=== PATIENT | female | born 1985 | race Caucasian/White ===

== ENCOUNTER 2021-02-05 12:16 | Emergency (ER) | payer OTHER, SELFPAY ==
--- NOTE | ~2021-02-05 | XR_ITS ---
EXAMINATION: XR chest 1V portable EXAM DATE: 02/05/2021 13:35 INDICATION: Cough X 1 Week, COVID +. TECHNIQUE: Portable AP frontal chest x-ray was obtained. Comparison is made to prior examination from 08/02/2012. FINDINGS: The lungs are clear. There are no pleural effusions. The cardiomediastinal silhouette is within normal limits. There is no pneumothorax suspected. The bones and soft tissues are unremarkab le. IMPRESSION: No acute cardiopulmonary findings. Reviewed, dictated and finalized at location B. NE INSPECTOR
--- NOTE | 2021-02-05 13:04 | ED.NAVMDI ---
HPI - Nausea/Vomiting/Diarrhea General Chief complaint: Nausea/Vomiting/Diarrhea Stated complaint: COVID + DEHYDRATION Time Seen by Provider: 02/05/21 12:49 Source: patient and RN notes reviewed Mode of arrival: ambulatory Limitations: no limitations History of Present Illness HPI Narrative: This is a 36 year old female who presents for evaluation of possible dehydration. Patient developed symptoms of COVID 10-11 days ago. Her symptoms have included nausea,diarrhea, body aches, intermittent headache, sinus drainage, and cough. Her body aches and headaches have resolved. She reports reports mild cough. She has intermittent diarrhea but denies any diarrhea today. She denies fever. She was tested for covid around [address] [facility] and she was found to be positive. She was evaluated by her PCP today and they thought she was dehydrated. She was referred to ER for IV hydration. It sounds like orthostatic blood pressures were performed and her BP was in 90s with lightheadedness. Patient states she stood up for a long time. She states she is drinking lots of fluid but she is eating very little due to decreased appetite. She is unvaccinated Related Data Allergies Allergy/AdvReac Type Severity Reaction Status Date / Time azithromycin Allergy Mild RASH,HIVES Verified 02/05/21 13:53 Review of Systems Review of Systems: All systems reviewed & are unremarkable except as noted in HPI and below Constitutional: Constitutional: Reports chills, Reports fatigue and Denies fever(s) ENT: Denies sore throat Cardiovascular: Cardiovascular: Denies chest pain Respiratory: Respiratory: Reports cough, Denies dyspnea and Denies wheezing Gastrointestinal: Gastrointestinal: Denies abdominal pain, Reports diarrhea, Reports nausea and Denies vomiting Endocrine: Endocrine: Reports fatigue PMFSH Past Medical History Medical History (Updated 02/05/21 @ 14:58 by Cindi Nieto MD) Anxiety Arthritis Family History Family History (Updated 10/17/15 @ 23:21 by DOCTOR UNKNOWN) Grandparent Cerebrovascular accident Depression Family history of Alzheimer's disease Malignant neoplasm of prostate Family history of lung cancer Mother Depression Patient's mother is in good health Father Family history of migraine headaches Patient's father is in good health Sibling Family history of migraine headaches Patient's sister is in good health Patient's brother is in good health Social History Social History Smoking status: Never smoker Second hand tobacco smoke exposure: No Alcohol intake: current Exam Narrative: GENERAL: Well-appearing, well-nourished, and in no acute distress. HEAD: Normocephalic, atraumatic EYES: PERRLA and EOMI, conjunctiva clear without discharge EARS: TM's clear bilaterally without erythema or dullness NOSE: Nares clear, no rhinorrhea or epistaxis THROAT:Mucous membranes moist, Oropharynx normal without erythema, exudate, peritonsillar swelling or fluctuance NECK: Supple, without lymphadenopathy or mass RESPIRATORY: No respiratory distress, Airway patent, Respirations non-labored, Clear to auscultation without rales, rhonchi or wheeze HEART: Regular rate and rhythm. No murmur heard. Normal peripheral pulses. ABDOMEN: Soft, nontender, nondistended, normal active bowel sounds. No masses. No rebound or guarding, No organomegaly. EXTREMITIES: No edema, normal strength with full range of motion. SKIN: Warm, dry, normal color without rash NEURO: Alert and oriented x3. CN 2-12 grossly intact. No focal deficits. PSYCH: Normal mood and affect. Const: General: no acute distress and alert Orientation/consciousness: patient oriented x3 Course Reevaluation(s) Reevaluation #1: Patient appears well. Labs are unremarkable other than mild leukopenia from viral infection. Her PCP has prescribed her augmentin. Date: 02/05/21 Time: 14:56 Vital Signs Vital signs: Vital Signs T
[2021-02-05 13:05] VITALS: BP 108/85; PULSE 79; RESP 17; TEMP 36.4; O2SAT 99
--- NOTE | 2021-02-05 13:05 | ECG_ITS ---
Measurements Intervals [place] Rate: 71 P: 25 NC: 138 QRS: 78 QRSD: 89 T: 48 QT: 385 QTc: 419 Interpretive Statements SINUS RHYTHM NORMAL ECG Electronically Signed On 02-05-2021 14:10:52 ARCHITECTURAL MANAGER by Mook Hearn D.O.
[2021-02-05 13:21] VITALS: BP 115/72; PULSE 81
[2021-02-05 13:22] VITALS: BP 119/85; BP 120/92; PULSE 105; PULSE 93
[2021-02-05 13:52] LABS: Basophils Percent Auto 0.3 % (0.2-1.2); Eosinophils Percent Auto 0.5 % (0-4.4); Hemoglobin 13.8 g/dL (12.0-15.0); Immature Granulocyte Absolute 0.01 K/mm3 (0.00-0.031); Immature Granulocyte Percent A 0.3 % (0-0.5); Lymphocytes Absolute Auto 1.17 K/mm3 (0.9-3.2); Lymphocytes Percent Auto 30.9 % (18.3-44.2); Mean Corpuscular HGB Conc 33.7 g/dl (32-36); Mean Corpuscular Hemoglobin 30.3 pg (26-34); Mean Corpuscular Volume 90.1 fl (80-100); Mean Platelet Volume 10.5 fl (7.4-10.4); Monocytes Absolute Auto 0.5 K/mm3 (0.1-0.6); Monocytes Percent Auto 13.5 % (2.6-8.5); Neutrophils Absolute Auto 2.1 K/mm3 (1.3-6.7); Neutrophils Percent Auto 54.5 % (45.5-73.1); Platelet Count Result 124 k/mm3 (150-375); Red Blood Count 4.55 M/mm3 (4.2-5.4); Red Cell Distribution Width 12.3 % (11.5-14.5); White Blood Count 3.8 K/mm3 (4.5-10.0)
[2021-02-05 13:56] LABS: Add Urine Microscopic? YES; Appearance Urine Cloudy (Clear); Bilirubin Urine Negative (Negative); Blood Urine Negative (Negative); Color Urine Yellow (Yellow); Glucose Urine UA Negative (Negative); Ketones Urine Negative (Negative); Leukocyte Esterase Ur 2+ LEU/UL (Negative); Mucus Urine Heavy /lpf; Nitrate Urine Negative (Negative); Protein Urine 1+ mg/dL (Negative); Specific Grav Ur 1.024 (1.001-1.035); Squamous Epithelial Cell Urine Many /hpf (Few); Urobilinogen Urine Negative mg/dL (<2.0)
[2021-02-05] MEDS: LACTATED RINGERS 1,000 ML 999 ML IV CONT (14:04)
[2021-02-05] MEDS: ONDANSETRON INJ 4 MG/2 ML VIAL IV PUSH (14:04)
[2021-02-05 14:06] LABS: Alanine Aminotransferase 12 U/L (4-35); Albumin Level 4.2 g/dL (3.5-5.1); Alkaline Phosphatase 43 U/L (38-126); Anion Gap 6 mmol/L (8-16); Aspartate Amino Transferase 21 U/L (14-36); Bilirubin,Total 0.4 mg/dL (0.2-1.3); Blood Urea Nitrogen 15 mg/dL (7-17); Calcium 8.8 mg/dL (8.4-10.2); Carbon Dioxide 29 mmol/L (22-30); Chloride 103 mmol/L (98-107); Estimated CRCL calculation 97 ml/min; Estimated Glomerular Filt Rate > 60; Glucose 93 mg/dL (65-110); Lipase 42 U/L (23-300); Potassium 4.1 mmol/L (3.4-5.0); Sodium 138 mmol/L (137-145)
[2021-02-05 15:41] VITALS: BP 120/88; PULSE 69; RESP 18; O2SAT 100
== END 2021-02-05 15:42 | disposition home or self-care (01) ==
PROVIDERS: Emergency Provider General Practice; PCP Internal Medicine
DX: U07.1 COVID-19 (principal); M19.90 Unspecified osteoarthritis, unspecified site
CPT/HCPCS: 36415; 71045; 80053; 81001; 81025; 83690; 85025; 87086; 87088; 93005; 96361; 96374; 99284; J2405; J7120

== ENCOUNTER → 2022-04-06 10:06 | Outpatient (CLI) | payer OTHER, SELFPAY ==
--- NOTE | ~2022-04-06 | US_ITS ---
Renal-Bladder ultrasound Clinical History: Frequent UTIs Technique: Real-time sonographic imaging of the kidneys and urinary bladder was performed. Findings: The right kidney measures 11.5 cm in length and the left kidney measures 10.6 cm. There is no hydronephrosis or renal calculus identified. Renal cortical echogenicity is within normal limits. No renal mass lesion is identified. The urinary bladder is moderately distended at the time of this exam. No intraluminal echoes are iden tified. No abnormal wall thickening is seen. Impression: Unremarkable ultrasound of the kidneys and urinary bladder. Reviewed, dictated and finalized at location M. R CHANGES RECORDS CLERK Impression: Unremarkable ultrasound of the kidneys and urinary bladder.
== END ==
PROVIDERS: PCP Internal Medicine; Visit Provider Internal Medicine
DX: N39.0 Urinary tract infection, site not specified (principal)
CPT/HCPCS: 76775

== ENCOUNTER 2022-04-15 11:02 | Outpatient (CLI) | payer OTHER, SELFPAY ==
--- NOTE | ~2022-04-15 | MR_ITS ---
EXAMINATION: MR brain/brain stem wo/w con DATE: 04/15/2022 11:55 INDICATION: Forgetfulness. Memory loss. TECHNIQUE: Magnetic resonance imaging (MRI) of the brain and brainstem was performed without and with 10 mL MultiHance intravenous contrast. COMPARISON: Head CT 07/19/2006 FINDINGS: There is no intracranial hemorrhage, acute infarction, or abnormal intracranial mass lesion . The ventricles are normal in size. The paranasal sinuses are clear. The orbits are normal. The mast oid air cells are normal. IMPRESSION: 1. Normal brain. Reviewed, dictated and finalized at location A. ND AND BINDER CONTROLLER IMPRESSION: 1. Normal brain.
== END 2022-04-15 11:03 ==
LOC: GOSHIMG 11:03
PROVIDERS: PCP Internal Medicine
DX: R41.3 Other amnesia (principal)
CPT/HCPCS: 70553; A9577